=== PATIENT | female | born 1980 | race Caucasian/White ===

== ENCOUNTER → 2017-01-14 05:42 | Day surgery (SDC) | payer MEDICAID ==
[2017-01-12 19:10] LABS: BASOPHILS 0.5 % (0-2); EOSINOPHILS 1.7 % (0-7); HEMATOCRIT 41.4 % (36.0-48.0); IMMATURE GRANULOCYTES 0.1 % (0-5); MCH 32.7 pg (26.0-34.0); MCHC 33.8 g/dL (31.0-37.0); MCV 96.7 fL (80.0-100.0); MEAN PLATELET VOLUME 12.9 fL (7.4-10.4); MONOCYTES 9.1 % (2-11); NEUTROPHILS 67.6 % (40-80); PLATELET COUNT 247 10x3/uL (130-400); RBC 4.28 10x6/uL (4.00-5.40); RDW 12.7 % (11.5-14.5); WBC 10.6 10x3/uL (4.8-10.8)
[2017-01-12 20:23] LABS: CALC OSMOLALITY 275 mosm/kg (275-300); CALCIUM 8.6 mg/dL (8.5-10.1); CARBON DIOXIDE 22.5 mmol/L (21.0-32.0); CHLORIDE - SERUM 103 mmol/L (98-107); CREATININE - SERUM 0.7 mg/dL (0.6-1.3); GLUCOSE 81 mg/dL (74-106); POTASSIUM - SERUM 4.5 mmol/L (3.5-5.1); SODIUM 139 mmol/L (136-145); UREA NITROGEN 10 mg/dL (7-18); eGFR NON AFRICAN AMERICAN > 90 mL/min (90-120)
== END | disposition home or self-care (01) ==
LOC: D.OPS 05:42 → D.PAN 07:30 → D.OPS 07:30
PROVIDERS: Obstetrics & Gynecology
DX: N92.1 Excessive and frequent menstruation with irregular cycle (principal); Z01.812 Encounter for preprocedural laboratory examination; Z01.811 Encounter for preprocedural respiratory examination; Z01.810 Encounter for preprocedural cardiovascular examination; Z53.9 Procedure and treatment not carried out, unspecified reason

== ENCOUNTER 2017-02-04 05:25 | Day surgery (SDC) | payer MEDICAID ==
[2017-02-02 10:38] LABS: BASOPHILS 0.4 % (0-2); EOSINOPHILS 1.7 % (0-7); HEMATOCRIT 40.3 % (36.0-48.0); HEMOGLOBIN 13.8 g/dL (12-16); IMMATURE GRANULOCYTES 0.3 % (0-5); LYMPHOCYTES 24.3 % (15-50); MCH 32.7 pg (26.0-34.0); MCHC 34.2 g/dL (31.0-37.0); MCV 95.5 fL (80.0-100.0); MEAN PLATELET VOLUME 10.9 fL (7.4-10.4); MONOCYTES 9.6 % (2-11); NEUTROPHILS 63.7 % (40-80); PLATELET COUNT 257 10x3/uL (130-400); RBC 4.22 10x6/uL (4.00-5.40); RDW 12.5 % (11.5-14.5); WBC 7.7 10x3/uL (4.8-10.8)
[2017-02-02 10:50] LABS: ANION GAP 14.3 mmol/L (8-16); CALCIUM 8.9 mg/dL (8.5-10.1); CARBON DIOXIDE 24.7 mmol/L (21.0-32.0); CREATININE - SERUM 0.9 mg/dL (0.6-1.3)
[~2017-02-04] VITALS: Ht 162.6 cm; Wt 65.8 kg
[2017-02-04 06:14] VITALS: BP 105/64; Ht 162.6 cm; Wt 65.8 kg
[2017-02-04 07:19] LABS: HCG URINE NEGATIVE (NEGATIVE)
[2017-02-04] MEDS ORDERED: HYDROCODON-ACE1 EAC7 PO (08:52)
[2017-02-04] MEDS ORDERED: IBUPROFEN600 MG PO (08:53)
== END 2017-02-04 09:45 | disposition home or self-care (01) ==
LOC: D.OPS 05:25 → D.PAN 07:30 → D.OPS 09:45
PROVIDERS: Obstetrics & Gynecology
DX: N92.1 Excessive and frequent menstruation with irregular cycle (principal); Z87.891 Personal history of nicotine dependence; Z01.812 Encounter for preprocedural laboratory examination

== ENCOUNTER 2017-08-05 05:32 | Inpatient (IN) | payer MEDICAID ==
[2017-08-04 14:19] LABS: BASOPHILS 0.4 % (0-2); EOSINOPHILS 1.1 % (0-7); HEMATOCRIT 41.9 % (36.0-48.0); HEMOGLOBIN 14.2 g/dL (12-16); IMMATURE GRANULOCYTES 0.2 % (0-5); LYMPHOCYTES 24.7 % (15-50); MCH 32.8 pg (26.0-34.0); MCHC 33.9 g/dL (31.0-37.0); MCV 96.8 fL (80.0-100.0); MEAN PLATELET VOLUME 10.6 fL (7.4-10.4); MONOCYTES 8.4 % (2-11); NEUTROPHILS 65.2 % (40-80); RBC 4.33 10x6/uL (4.00-5.40); RDW 12.1 % (11.5-14.5); WBC 10.2 10x3/uL (4.8-10.8)
[2017-08-04 14:22] LABS: PLATELET COUNT 316 10x3/uL (130-400)
[~2017-08-05] VITALS: Ht 152.4 cm; Wt 75.0 kg
[2017-08-05] VITALS (12 sets, daily range): BP systolic 105–136; BP diastolic 65–95; Ht 152.4 cm; Wt 75.0 kg
[~2017-08-05 05:32] MED LIST: ADIPEX-P37.5 MG PO; FERROUS SULFAT325 MG PO; HYDROCODON-ACE1 EAC7 PO; IBUPROFEN600 MG PO
[2017-08-05 05:59] LABS: HCG URINE NEGATIVE (NEGATIVE)
[2017-08-05 17:15] LABS: BASOPHILS 0.1 % (0-2); EOSINOPHILS 0 % (0-7); HEMATOCRIT 37.4 % (36.0-48.0); HEMOGLOBIN 12.5 g/dL (12-16); IMMATURE GRANULOCYTES 0.3 % (0-5); MCH 32.6 pg (26.0-34.0); MCHC 33.4 g/dL (31.0-37.0); MCV 97.4 fL (80.0-100.0); MEAN PLATELET VOLUME 10.6 fL (7.4-10.4); MONOCYTES 6.6 % (2-11); PLATELET COUNT 268 10x3/uL (130-400); RBC 3.84 10x6/uL (4.00-5.40); RDW 12.2 % (11.5-14.5); WBC 17.9 10x3/uL (4.8-10.8)
[2017-08-05 17:41] LABS: CALC OSMOLALITY 270 mosm/kg (275-300); CARBON DIOXIDE 17.2 mmol/L (21.0-32.0); CHLORIDE - SERUM 102 mmol/L (98-107); CREATININE - SERUM 0.7 mg/dL (0.6-1.3); GLUCOSE 90 mg/dL (74-106); POTASSIUM - SERUM 4.6 mmol/L (3.5-5.1); SODIUM 136 mmol/L (136-145); UREA NITROGEN 11 mg/dL (7-18); eGFR NON AFRICAN AMERICAN > 90 mL/min (90-120)
[2017-08-06 03:30] VITALS: BP 110/70
[2017-08-06 06:03] LABS: BASOPHILS 0.2 % (0-2); EOSINOPHILS 1.1 % (0-7); HEMATOCRIT 36.2 % (36.0-48.0); HEMOGLOBIN 11.9 g/dL (12-16); IMMATURE GRANULOCYTES 0.3 % (0-5); LYMPHOCYTES 24.1 % (15-50); MCH 32.2 pg (26.0-34.0); MCHC 32.9 g/dL (31.0-37.0); MCV 97.8 fL (80.0-100.0); MEAN PLATELET VOLUME 11.4 fL (7.4-10.4); MONOCYTES 9.6 % (2-11); NEUTROPHILS 64.7 % (40-80); PLATELET COUNT 264 10x3/uL (130-400); RDW 12.1 % (11.5-14.5)
[2017-08-06 06:07] LABS: WBC 11.9 10x3/uL (4.8-10.8)
[2017-08-06 06:17] LABS: CHLORIDE - SERUM 101 mmol/L (98-107); GLUCOSE 86 mg/dL (74-106); SODIUM 136 mmol/L (136-145)
[2017-08-06 06:26] LABS: CALC OSMOLALITY 268 mosm/kg (275-300); UREA NITROGEN 7 mg/dL (7-18)
[2017-08-06 06:27] LABS: CARBON DIOXIDE 27.4 mmol/L (21.0-32.0); CREATININE - SERUM 0.5 mg/dL (0.6-1.3); POTASSIUM - SERUM 3.8 mmol/L (3.5-5.1); eGFR NON AFRICAN AMERICAN > 90 mL/min (90-120)
[2017-08-06 08:05] VITALS: BP 99/62
[2017-08-06 10:35] VITALS: BP 105/55
[2017-08-06 19:18] LABS: BASOPHILS 0.2 % (0-2); EOSINOPHILS 1.3 % (0-7); HEMATOCRIT 36.3 % (36.0-48.0); HEMOGLOBIN 12.1 g/dL (12-16); IMMATURE GRANULOCYTES 0.4 % (0-5); LYMPHOCYTES 14.1 % (15-50); MCH 32.7 pg (26.0-34.0); MCHC 33.3 g/dL (31.0-37.0); MCV 98.1 fL (80.0-100.0); MEAN PLATELET VOLUME 10.7 fL (7.4-10.4); MONOCYTES 7.5 % (2-11); NEUTROPHILS 76.5 % (40-80); PLATELET COUNT 234 10x3/uL (130-400); RDW 12.1 % (11.5-14.5); WBC 11.1 10x3/uL (4.8-10.8)
[2017-08-06 19:50] VITALS: BP 124/64
[2017-08-07 07:52] VITALS: BP 126/64
[2017-08-07] MEDS ORDERED: PERCOCET 10/3251 TA1 PO (08:17)
[2017-08-07] MEDS ORDERED: IBUPROFEN600 MG PO (08:18)
== END 2017-08-07 09:06 | disposition home or self-care (01) | DRG 743 ==
LOC: D.LD 05:32 → D.SDCHOLD 05:32 → D.LD 11:39
PROVIDERS: Obstetrics & Gynecology
PROC: 0UNF0ZZ Release Cul-de-sac, Open Approach (ICD-10-PCS; 2017-08-05)
PROC: 0TNB0ZZ Release Bladder, Open Approach (ICD-10-PCS; 2017-08-05)
PROC: 0UB70ZZ Excision of Bilateral Fallopian Tubes, Open Approach (ICD-10-PCS; 2017-08-05)
PROC: 0UT90ZZ Resection of Uterus, Open Approach (ICD-10-PCS; principal; 2017-08-05 07:30)
DX: N85.00 Endometrial hyperplasia, unspecified (principal); N92.1 Excessive and frequent menstruation with irregular cycle; N73.6 Female pelvic peritoneal adhesions (postinfective); Z72.0 Tobacco use